=== PATIENT | female | born 1970 | race Caucasian/White ===

== ENCOUNTER → 2016-09-14 | Outpatient (CLI) | payer MEDICAID ==
[~2016-09-14] MED LIST: ALBUTEROL2 PUFFS/17 IN; ASPIRIN 81MG TA81 MG PO; ATORVASTATIN CA10 MG PO; BACLOFEN20 MG PO; BACTRIM DS 8001 TA1 PO; BENZONATATE100 MG PO; CLOPIDOGREL75 MG PO; CYCLOBENZAPRINE10 M1 PO; DOXYCYCLINE HY100 M3 PO; ELAVIL GENERIC10 MG PO; FLAGYL 500MG.500 MG PO; FLEXERIL10 MG PO; FUROSEMIDE 20MG20 MG PO; GABAPENTIN100 M1 PO; GABAPENTIN300 MG PO; HYCODAN 5MG. TAB5 MG PO; HYDROCODONE-APA1 TA2 PO; IMMODIUM OR; Isosorbide Mono60 MG PO; KEFLEX 500MG.500 MG PO; LASIX20 MG PO; LISINOPRIL 20MG20 MG PO; LISINOPRIL2.5 MG PO; LORTAB 5/500 501 TAB PO; MELOXICAM7.5 MG PO; MOBIC7.5 MG PO; MOTRIN600 M1 PO; MOTRIN800 MG PO; MUCINEX600 M1 PO; NAPROSYN 500MG500 MG PO; NAPROXEN D/R500 MG PO; NICOTINE PATCH;21 MG TD; NITROGLYCERIN0.4 MG SL; NOMEDS XX; NORCO 325 MG-51 TAB PO; OMEPRAZOLE40 MG PO; PANTOPRAZOLE SO40 M1 PO; PHENERGAN 25MG.25 M1 PO; PLAVIX75 MG PO; PREDNISONE 20MG20 MG PO; PRILOSEC40 MG PO; PROMETHAZINE HC25 M1 PO; SINGULAIR10 MG PO; SPIRONOLACTONE25 MG PO; TESSALON PERLE100 MG PO; TORADOL10 MG PO; TRAMADOL 50MG T50 MG PO; ULTRAM 50 MG TA50 MG PO; ULTRAM50 MG PO; VIBRAMYCIN 100100 MG PO; VOLTAREN75 MG PO; ZOFRAN4 MG PO
[2016-09-14 15:59] LABS: AMPHETAMINES/METAMPHETAMINES NEGATIVE ng/mL (<1000)
== END ==
LOC: LAB 14:02
PROVIDERS: Nurse Practitioner Family
DX: M25.561 Pain in right knee (principal)

== ENCOUNTER → 2017-01-12 | Outpatient (CLI) | payer MEDICAID ==
[2017-01-12 12:59] LABS: AMPHETAMINES/METAMPHETAMINES NEGATIVE ng/mL (<1000)
== END ==
LOC: LAB 12:22
PROVIDERS: Nurse Practitioner Family
DX: Z79.899 Other long term (current) drug therapy (principal)